=== PATIENT | male | born 1935 | race Caucasian/White ===

== ENCOUNTER 2016-12-18 18:36 | Inpatient (IN) | payer MEDICARE, OTHER ==
[~2016-12-18] VITALS: Ht 172.7 cm; Wt 75.8 kg
[~2016-12-18 18:36] MED LIST: ACET325T9 PO; ASPI-630 PO; ATOR40TA PO; BUPR100T6 PO; CARV25TA PO; DOCU50CA6 PO; LISI-338 PO; MULT1TAB6 PO; OMEG1CAP6 PO; PANT40TA3 PO; POTA10TA17 PO
[2016-12-18 18:50] VITALS: BP 106/61
[2016-12-18] MEDS ORDERED: IV NORMAL SALINE 1,000ML 1,000 ML IV SCH (19:45)
[2016-12-18] MEDS ORDERED: ZOLPIDEM 5 MG TABLET. PO PRN (19:45)
[2016-12-18 20:18] LABS: BASO % 1 % (0-3); EOS # 0.1 x10^3/uL (0.0-0.7); EOS % 4 % (0-3); HEMATOCRIT 22.6 % (39.0-53.0); HEMOGLOBIN 8.2 g/dL (13.0-17.5); LYMPH # 1.1 x10^3/uL (1.0-4.8); LYMPH % 28 % (24-48); MEAN CORPUSCULAR HEMOGLOBIN 37 pg (25-35); MEAN CORPUSCULAR HGB CONC 36 g/dL (31-37); MEAN CORPUSCULAR VOLUME 101 fL (79-100); MONO # 0.5 x10^3/uL (0.0-1.1); MONO % 12 % (0-9); NEUT # 2.2 x10^3uL (1.8-7.7); NEUT % 56 % (31-73); PLATELET COUNT 126 x10^3/uL (140-400); RED BLOOD COUNT 2.24 x10^6/uL (4.30-5.70); RED CELL DISTRIBUTION WIDTH 14.8 % (11.5-14.5); WHITE BLOOD COUNT 3.9 x10^3/uL (4.0-11.0)
[2016-12-18 20:31] LABS: ALBUMIN 3.2 g/dL (3.4-5.0); ALBUMIN/GLOBULIN RATIO 1.2 (1.0-1.7); CALCIUM 8.3 mg/dL (8.5-10.1); CREATININE 1.2 mg/dL (0.7-1.3); GFR 58.4; TOTAL BILIRUBIN 0.7 mg/dL (0.2-1.0); TOTAL PROTEIN 5.9 g/dL (6.4-8.2)
[2016-12-18 20:36] LABS: POTASSIUM 2.9 mmol/L (3.5-5.1)
[2016-12-18] MEDS ORDERED: POTASSIUM CITRATE 10 MEQ TABLET.ER PO SCH (21:00)
[2016-12-18] MEDS: ACETAMINOPHEN 500 MG TABLET PO SCH (21:00)
[2016-12-18] MEDS: ATORVASTATIN CALCIUM 20 MG TABLET PO SCH (21:00)
[2016-12-18] MEDS ORDERED: MAGNESIUM CHLORIDE ER 64 MG TABLET.ER PO SCH (21:00)
--- NOTE | 2016-12-18 21:17 | RAD ---
Abdominal radiograph December 18, 2016 INDICATION: Abdominal pain with diarrhea COMPARISON: CT abdomen/pelvis March 07, 2016, abdominal radiograph May 03, 2016 TECHNIQUE: 2 supine views of abdomen are provided. FINDINGS: Supine technique limits evaluation for free intraperitoneal air. There is subsegmental atelectasis at the left lung base. Partial profiling of median sternotomy changes. Coronary artery vascular stent is present. Surgical clips are identified in the right upper quadrant from prior cholecystectomy. There are no dilated loops of small and large bowel. Mild gaseous prominence of the transverse colon is present, nonspecific. No air-fluid levels are identified. Small calcifications are identified projecting over the left renal shadow measuring up to 6 mm. There is S-shaped scoliosis of the thoracolumbar spine. Left total hip arthroplasty is identified. IMPRESSION: 1. Nonobstructive bowel gas pattern. 2. 6 mm calcification projecting over the left renal shadow may represent a renal calculus. Electronically signed by: Kassy Caban MD (12/18/2016 9:13 PM) [facility]
[2016-12-18] MEDS: FAMOTIDINE 20 MG TABLET PO SCH (21:20)
[2016-12-18] MEDS: POTASSIUM CHLORIDE 30 MEQ in IV NORMAL SALINE 1,000ML 1,000 ML IV SCH (22:37)
[2016-12-18 22:40] VITALS: BP 91/57
[2016-12-19] VITALS (12 sets, daily range): BP systolic 87–114; BP diastolic 59–71
[2016-12-19 00:12] LABS: FECAL OB PT NEGATIVE (NEG)
[2016-12-19] MEDS ORDERED: PANT20TA58 PO (00:16)
[2016-12-19] MEDS ORDERED: CLOP75TA57 PO (00:16)
[2016-12-19] MEDS ORDERED: LOSA25TA PO (00:16)
[2016-12-19] MEDS ORDERED: CARV3.122 PO (00:16)
[2016-12-19 06:12] LABS: BASO % 1 % (0-3); EOS # 0.1 x10^3/uL (0.0-0.7); EOS % 4 % (0-3); HEMOGLOBIN 7.6 g/dL (13.0-17.5); LYMPH # 0.9 x10^3/uL (1.0-4.8); LYMPH % 35 % (24-48); MEAN CORPUSCULAR HEMOGLOBIN 37 pg (25-35); MEAN CORPUSCULAR HGB CONC 36 g/dL (31-37); MEAN CORPUSCULAR VOLUME 102 fL (79-100); MONO # 0.4 x10^3/uL (0.0-1.1); MONO % 14 % (0-9); NEUT # 1.3 x10^3uL (1.8-7.7); NEUT % 46 % (31-73); PLATELET COUNT 108 x10^3/uL (140-400); RED BLOOD COUNT 2.06 x10^6/uL (4.30-5.70); RED CELL DISTRIBUTION WIDTH 14.7 % (11.5-14.5); WHITE BLOOD COUNT 2.7 x10^3/uL (4.0-11.0)
[2016-12-19 06:23] LABS: ALBUMIN 2.9 g/dL (3.4-5.0); CALCIUM 8.2 mg/dL (8.5-10.1); CREATININE 1.1 mg/dL (0.7-1.3); GFR 64.6; MAGNESIUM 1.3 mg/dL (1.8-2.4); POTASSIUM 3.1 mmol/L (3.5-5.1); TOTAL BILIRUBIN 0.6 mg/dL (0.2-1.0); TOTAL PROTEIN 5.7 g/dL (6.4-8.2)
[2016-12-19 07:30] LABS: BACTERIA,URINE 0 /HPF (0-FEW); BILIRUBIN,URINE NEG (NEG); CLARITY,URINE CLEAR; COLOR,URINE AMBER; GLUCOSE,URINE NEG (NEG); NITRITE,URINE NEG (NEG); RBC,URINE 0 /HPF (0-2); SQUAMOUS EPITHELIAL CELL,UR FEW /LPF; UROBILINOGEN,URINE 0.2 mg/dL (0.2 mg/dL); WBC,URINE OCC /HPF (0-4)
[2016-12-19] MEDS: ASPIRIN 81 MG TAB.CHEW PO SCH (08:45)
[2016-12-19] MEDS: FAMOTIDINE 20 MG TABLET PO SCH ×2 (08:45→21:01)
[2016-12-19] MEDS ORDERED: IOHEXOL 300 MG/ML 75 ML VIAL. IV ONE ×2 (08:45→09:15)
[2016-12-19] MEDS: ACETAMINOPHEN 500 MG TABLET PO SCH ×3 (08:45→21:00)
[2016-12-19] MEDS: MAGNESIUM CHLORIDE ER 64 MG TABLET.ER PO SCH ×3 (08:46→21:00)
[2016-12-19] MEDS: POTASSIUM CITRATE 10 MEQ TABLET.ER PO SCH ×3 (08:47→21:01)
[2016-12-19] MEDS: buPROPion XL 150 MG TAB.ER.24H PO SCH (09:04)
--- NOTE | 2016-12-19 09:50 | RAD ---
Examination: CT angiography chest History: History of elevated d-dimer, open heart surgery Comparison: CT chest from 09/06/2009 Technique: Axial CT and radiographic images were performed with IV contrast. Coronal and sagittal 3-D MIP reformats are performed. PQRS Compliance Statement: One or more of the following individualized dose reduction techniques were utilized for this examination: 1. Automated exposure control 2. Adjustment of the mA and/or kV according to patient size 3. Use of iterative reconstruction technique Findings: The visualized thyroid gland grossly appears unremarkable. The central airways are patent. Diffuse coronary artery calcifications identified. Prior surgical changes of CABG. The heart size grossly appears unremarkable. No evidence of pleural effusion. Small hiatal hernia is identified. No radiologically significant mediastinal or bilateral axillary lymph nodes identified. There is no evidence of filling defect identified in the main pulmonary artery trunk and right and left main pulmonary arteries and the visualized lobar, segmental branches of the pulmonary arteries. 8 mm solid nodule identified in the right upper lobe of the lung grossly similar to prior exam from 2009. Minimal bibasal lung atelectasis. Minimal bibasal bronchiectatic changes. The visualized liver, adrenals grossly appears unremarkable. Moderate degenerative changes thoracic spine. Impression: 1. No evidence of pulmonary embolism. 2. Linear bibasal lung airspace opacities likely atelectasis or scarring changes. 3. 8 mm pulmonary nodule identified in the right upper lobe of the lungs, stable since 2009.
[2016-12-19] MEDS: POTASSIUM CHLORIDE 30 MEQ in IV NORMAL SALINE 1,000ML 1,000 ML IV SCH (11:02)
--- NOTE | 2016-12-19 11:11 | EKG ---
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
--- NOTE | 2016-12-19 15:55 | PDOC2 ---
CONSULT Date of Admission DATE: 12/19/16 TIME: 15:39 Reason for Consult: Elevated troponin Referring Physician: Dr. Scherer History of Present Illness This is a pleasant 81-year-old male who presented to his primary care doctor's office with hypotension and diarrhea. He has a past medical history of coronary artery disease, In 2002 he had his 1st stent placed at [facility]. A few years later he had to return for a 2nd stent in the same area and then in 2007 he underwent coronary artery bypass surgery. About a week and half ago he was in [place] visiting his grandchildren when he had sudden onset chest pain and diaphoresis. They called EMS and he was taken to [facility] and had an emergent angioplasty and stent. The said Dr. Gaston was the meal packer and his procedure lasted approximately 3 hours where they were finally able to get a stent into the blood clot but flow was not reestablished. They then told the family that he would need to have another bypass surgery but he might be prohibited by his age. After is a week spent in the hospital he was discharged home has been following with home health. At home his blood pressures have been quite low and he developed frequent diarrhea. He was feeling weak and tired so he went to see his primary. He was hospitalized and is getting checked for C diff. We have been called in consult because of an elevated troponin level. He is asymptomatic without any chest pain, pressure or tightness. His said he was slightly breathless at home but has been fine since he has been in the hospital. Past medical /surgical history: Myocardial infarction, coronary artery disease, coronary artery bypass grafting, coronary stent, hypertension, hyperlipidemia, kidney stones status post renal stent placement joint replacement allergies-no known drug allergies medications -list reviewed social history - he lives at home with his he denies any alcohol, tobacco or illegal drugs. Family history - no family history of premature coronary artery disease. Physical examination GENERAL: This is a well developed, well nourished male. No apparent distress. SKIN: Warm and dry with normal skin turgor. Negative for pallor. No lesions or rashes noted. EYES: Conjunctiva are clear. Extraocular movements are intact. No xanthelasma. HEAD AND NECK: Oral mucosa is moist. There is no cyanosis. Neck is supple. Jugular venous pressure is flat. Carotid pulses are 2/2 bilaterally. No carotid bruits. There is no obvious thyromegaly. HEART: Regular rate and rhythm. Normal S1 and S2. No S3. No S4. No significant murmur. No rub. PMI is not displaced. LUNGS: Effort is good. There is symmetric expansion bilaterally. Clear to auscultation bilaterally. No wheezes. No crackles. No rhonchi. ABDOMEN: Normal active bowel sounds. Soft. Nontender. EXTREMITIES: No clubbing. No cyanosis. No edema of lower extremities. Palpable pedal pulses. MUSCULOSKELETAL: No kyphosis. No scoliosis. No localized tenderness or stiffness. Gait appears normal. NEUROLOGIC: Alert and oriented times three. Cranial nerves III-XII are grossly intact. Good motor tone and strength in the upper and lower extremities bilaterally. PSYCHOLOGIC: This is a pleasant patient with a normal affect CT scan of chest 1. No evidence of pulmonary embolism. 2. Linear bibasal lung airspace opacities likely atelectasis or scarring changes. 3. 8 mm pulmonary nodule identified in the right upper lobe of the lungs, stable since 2009. Impression and plan 1. Elevated troponin -likely related to his recent myocardial infarction. We will plan to repeat his troponin in 6-8 hours and see if they are trending down or remaining flat. At this point he is asymptomatic without any chest pain or problems continue medical therapy. 2. . Electrolyte imbalance -supplement potassium and magnesium and recheck 3. hypotension -improved with fluid replacement and holding medication. Continue same for now at some point we will go back and resume his Reynaldo and beta- madison. 4. coronary artery disease status post revascularization. Continue aspirin and statin therapy. Request records from [facility]. 5. Ischemic cardiomyopathy/ Systolic dysfunction - patient reports his ejection fraction was at 45 percent at [facility] 6. hyperlipidemia continue atorvastatin. 7. anemia -continue aspirin with recent [place]. And request records from [facility] Thank you Dr. Scherer for referring this pleasant patient to her service would be happy to follow along with you Current Medications Current Medications Sodium Chloride 1,000 ml @ 75 mls/hr [id number] IV ; Start 12/18/16 at 19:45; Stop 12/18/16 at 20:41; Status DC Acetaminophen (Tylenol) 1,000 mg BID PO ; Start 12/18/16 at 21:00 Aspirin (Children'S Aspirin) 81 mg DAILY PO Last administered on 12/19/16 08: 45; Start 12/19/16 at 09:00 Bupropion HCl (Wellbutrin Xl) 150 mg DAILY PO Last administered on 12/19/16 09 :04; Start 12/19/16 at 09:00 Potassium Citrate (Urocit-K) 10 meq BID PO Last administered on 12/18/16 21:20 ; Start 12/18/16 at 21:00; Stop 12/19/16 at 08:40; Status DC Atorvastatin Calcium (Lipitor) 40 mg QHS PO ; Start 12/18/16 at 21:00 Famotidine (Pepcid) 20 mg BID PO Last administered on 12/19/16 08:45; Start at 21:00 Zolpidem Tartrate (Ambien) 5 mg PRN QHS PRN PO INSOMNIA, MAY REPEAT IN 1HR; Start 12/18/16 at 19:45 Magnesium Chloride (Mag Delay) 64 mg BID PO Last administered on 12/18/16 21: 19; Start 12/18/16 at 21:00; Stop 12/19/16 at 08:40; Status DC Potassium Chloride 30 meq/ Sodium Chloride 1,015 ml @ 75 mls/hr [id number] IV Last administered on 12/18/16 22:37; Start 12/18/16 at 21:30 Magnesium Chloride (Mag Delay) 64 mg TID PO Last administered on 12/19/16 08: 46; Start 12/19/16 at 09:00 Potassium Citrate (Urocit-K) 20 meq TID PO Last administered on 12/19/16 08:47 ; Start 12/19/16 at 09:00 Iohexol (Omnipaque 300 Mg/ml) 75 ml 1X ONCE IV Last administered on 12/19/16 09:22; Start 12/19/16 at 08:45; Stop 12/19/16 at 09:03; Status DC Iohexol (Omnipaque 300 Mg/ml) 75 ml 1X ONCE IV ; Start 12/19/16 at 09:15; Stop 12/19/16 at 09:16; Status DC Active Scripts Active Reported Protonix (Pantoprazole Sodium) 20 Mg Tablet.dr 1 Tab PO DAILY Plavix (Clopidogrel Bisulfate) 75 Mg Tablet 1 Tab PO DAILY Cozaar (Losartan Potassium) 25 Mg Tablet 12.5 Mg PO DAILY Carvedilol 3.125 Mg Tablet 1 Tab PO BID Colace (Docusate Sodium) 50 Mg Capsule 50 Mg PO DAILY Tylenol (Acetaminophen) 325 Mg Tablet 1,000 Mg PO BID Fish Oil 1,000 Mg Capsule ([place]-3 Fatty Acids/Fish Oil) 1 Each Capsule 1 Each PO BID Potassium Citrate 10 Meq Tablet.er 10 Meq PO BID Lipitor (Atorvastatin Calcium) 40 Mg Tablet 40 Mg PO HS Wellbutrin (Bupropion Hcl) 100 Mg Tablet 150 Mg PO DAILY Centrum Complete Multivit Tab (Multivitamin/Iron/Folic Acid) 1 Each Tablet 1 Each PO DAILY Aspirin 81 Mg Tab.chew 81 Mg PO DAILY Allergies: Coded Allergies: No Known Drug Allergies (Unverified , 03/07/16) VITALS Vital Signs Date Time Temp Pulse Resp B/P (MAP) Pulse Ox O2 Delivery O2 Flow Rate FiO2 12/19/16 14:48 68 13 98/64 (75) Room Air 12/19/16 13:57 97 12/19/16 11:36 96.8 Labs Laboratory Tests Test 12/18/16 19:50 12/18/16 23:30 12/19/16 06:00 12/19/16 12:05 White Blood Count 3.9 x10^3/uL (4.0-11.0) 2.7 x10^3/uL (4.0-11.0) Red Blood Count 2.24 x10^6/uL (4.30-5.70) 2.06 x10^6/uL (4.30-5.70) Hemoglobin 8.2 g/dL (13.0-17.5) 7.6 g/dL (13.0-17.5) Hematocrit 22.6 % (39.0-53.0) 21.0 % (39.0-53.0) Mean Corpuscular Volume 101 fL (79-100) 102 fL (79-100) Mean Corpuscular Hemoglobin 37 pg (25-35) 37 pg (25-35) Mean Corpuscular Hemoglobin Concent 36 g/dL (31-37) 36 g/dL (31-37) Red Cell Distribution Width 14.8 % (11.5-14.5) 14.7 % (11.5-14.5) Platelet Count 126 x10^3/uL (140-400) 108 x10^3/uL (140-400) Neutrophils (%) (Auto) 56 % (31-73) 46 % (31-73) Lymphocytes (%) (Auto) 28 % (24-48) 35 % (24-48) Monocytes (%) (Auto) 12 % (0-9) 14 % (0-9) Eosinophils (%) (Auto) 4 % (0-3) 4 % (0-3) Basophils (%) (Auto) 1 % (0-3) 1 % (0-3) Neutrophils # (Auto) 2.2 x10^3uL (1.8-7.7) 1.3 x10^3uL (1.8-7.7) Lymphocytes # (Auto) 1.1 x10^3/uL (1.0-4.8) 0.9 x10^3/uL (1.0-4.8) Monocytes # (Auto) 0.5 x10^3/uL (0.0-1.1) 0.4 x10^3/uL (0.0-1.1) Eosinophils # (Auto) 0.1 x10^3/uL (0.0-0.7) 0.1 x10^3/uL (0.0-0.7) Basophils # (Auto) 0.0 x10^3/uL (0.0-0.2) 0.0 x10^3/uL (0.0-0.2) D-Dimer (Kathi) 0.71 mg/L (0.00-0.50) Sodium Level 142 mmol/L (136-145) 142 mmol/L (136-145) Potassium Level 2.9 mmol/L (3.5-5.1) 3.1 mmol/L (3.5-5.1) Chloride Level 106 mmol/L (98-107) 108 mmol/L (98-107) Carbon Dioxide Level 29 mmol/L (21-32) 28 mmol/L (21-32) Anion Gap 7 (6-14) 6 (6-14) Blood Urea Nitrogen 20 mg/dL (8-26) 17 mg/dL (8-26) Creatinine 1.2 mg/dL (0.7-1.3) 1.1 mg/dL (0.7-1.3) Estimated GFR (Cockcroft-Gault) 58.4 64.6 BUN/Creatinine Ratio 17 (6-20) 15 (6-20) Glucose Level 132 mg/dL (70-99) 88 mg/dL (70-99) Lactic Acid Level 1.1 mmol/L (0.4-2.0) Calcium Level 8.3 mg/dL (8.5-10.1) 8.2 mg/dL (8.5-10.1) Magnesium Level 1.5 mg/dL (1.8-2.4) 1.3 mg/dL (1.8-2.4) Total Bilirubin 0.7 mg/dL (0.2-1.0) 0.6 mg/dL (0.2-1.0) Aspartate Amino Transf (AST/SGOT) 26 U/L (15-37) 25 U/L (15-37) Alanine Aminotransferase (ALT/SGPT) 32 U/L (16-63) 29 U/L (16-63) Alkaline Phosphatase 73 U/L (46-116) 63 U/L (46-116) Total Protein 5.9 g/dL (6.4-8.2) 5.7 g/dL (6.4-8.2) Albumin 3.2 g/dL (3.4-5.0) 2.9 g/dL (3.4-5.0) Albumin/Globulin Ratio 1.2 (1.0-1.7) 1.0 (1.0-1.7) Stool Occult Blood Negative (NEG) Urine Collection Type Unknown Urine Color Kathy Urine Clarity Clear Urine pH 5.5 Urine Specific [place] 1.020 Urine Protein Trace (NEG-TRACE) Urine Glucose (UA) Neg mg/dL (NEG) Urine Ketones (Stick) Trace mg/dL (NEG) Urine Blood Neg (NEG) Urine Nitrite Neg (NEG) Urine Bilirubin Neg (NEG) Urine Urobilinogen Dipstick 0.2 mg/dL (0.2 mg/dL) Urine Leukocyte Esterase Neg (NEG) Urine RBC 0 /HPF (0-2) Urine WBC Occ /HPF (0-4) Urine Squamous Epithelial Cells Few /LPF Urine Transitional Epithelial Cells Occ /LPF Urine Bacteria 0 /HPF (0-FEW) Urine Mucus Slight /LPF Creatine Kinase 34 U/L (39-308) Troponin I Quantitative 0.927 ng/mL (0-0.055) 0.767 ng/mL (0-0.055) DC-Val-B-Type Natriuretic Peptide 947 pg/mL (0-449) Vitamin B12 Level 851 pg/mL (247-911) NALDO RIVERA APRN Dec 19, 2016 15:55
[2016-12-19] MEDS: ATORVASTATIN CALCIUM 20 MG TABLET PO SCH (21:01)
[2016-12-20] VITALS (26 sets, daily range): BP systolic 82–129; BP diastolic 48–79
[2016-12-20] MEDS: POTASSIUM CHLORIDE 30 MEQ in IV NORMAL SALINE 1,000ML 1,000 ML IV SCH ×2 (03:30→12:37)
[2016-12-20 06:03] LABS: BASO % 1 % (0-3); EOS # 0.1 x10^3/uL (0.0-0.7); EOS % 5 % (0-3); HEMATOCRIT 20.5 % (39.0-53.0); HEMOGLOBIN 7.4 g/dL (13.0-17.5); LYMPH % 44 % (24-48); MEAN CORPUSCULAR HEMOGLOBIN 37 pg (25-35); MEAN CORPUSCULAR HGB CONC 36 g/dL (31-37); MEAN CORPUSCULAR VOLUME 103 fL (79-100); MONO # 0.3 x10^3/uL (0.0-1.1); MONO % 12 % (0-9); NEUT # 0.9 x10^3uL (1.8-7.7); NEUT % 38 % (31-73); PLATELET COUNT 104 x10^3/uL (140-400); RED BLOOD COUNT 1.99 x10^6/uL (4.30-5.70); RED CELL DISTRIBUTION WIDTH 15.1 % (11.5-14.5); WHITE BLOOD COUNT 2.3 x10^3/uL (4.0-11.0)
[2016-12-20 06:10] LABS: CALCIUM 7.8 mg/dL (8.5-10.1); GFR 72.1; POTASSIUM 3.9 mmol/L (3.5-5.1)
[2016-12-20 06:41] LABS: % BANDS 2 % (0-9); % EOS 2 % (0-5); % LYMPHS 56 % (24-48); % MONOS 8 % (0-10); % SEGS 32 % (35-66)
[2016-12-20 06:47] LABS: OVALOCYTES OCC; PLT ESTIMATE DECREASED (ADEQUATE); SPHEROCYTES FEW
[2016-12-20] MEDS: ASPIRIN 81 MG TAB.CHEW PO SCH (08:15)
[2016-12-20] MEDS: MAGNESIUM CHLORIDE ER 64 MG TABLET.ER PO SCH ×3 (08:16→20:55)
[2016-12-20] MEDS: ACETAMINOPHEN 500 MG TABLET PO SCH ×2 (08:17→20:55)
[2016-12-20] MEDS: FAMOTIDINE 20 MG TABLET PO SCH ×2 (08:17→20:55)
[2016-12-20] MEDS: POTASSIUM CITRATE 10 MEQ TABLET.ER PO SCH ×3 (08:18→20:56)
[2016-12-20] MEDS: buPROPion XL 150 MG TAB.ER.24H PO SCH (08:19)
--- NOTE | 2016-12-20 09:21 | PDOC ---
SUBJECTIVE Subjective: He denies any chest pain. He has ambulated down the hallway with the help of OT/ PT. His last diarrhea was from 3:30 this morning. He denies any postural dizziness Exam Constitutional: Denies fever or chills Eyes: Denies change in visual acuity HENT: Denies nasal congestion or sore throat Respiratory: Denies cough or shortness of breath Cardiovascular: Denies chest pain or edema GI: Denies abdominal pain, nausea, vomiting, bloody stools and has diarrhea : Denies dysuria Musculoskeletal: Denies back pain or joint pain Integument: Denies rash Neurologic: Denies headache, focal weakness or sensory changes Endocrine: Denies polyuria or polydipsia Lymphatic: Denies swollen glands Psychiatric: Denies depression or anxiety OBJECTIVE Vital Signs Vital Signs Date Time Temp Pulse Resp B/P (MAP) Pulse Ox O2 Delivery O2 Flow Rate FiO2 12/20/16 08:30 Room Air 12/20/16 07:48 74 17 117/73 (88) 12/20/16 04:48 96 12/19/16 18:56 97.5 Physical Exam Constitutional: Well developed, well nourished, no acute distress, non-toxic appearance. HENT: Normocephalic, atraumatic, bilateral external ears normal, oropharynx moist, no oral exudates, nose normal. Eyes: MARILYNN, EOMI, conjunctiva normal, no discharge. Neck: Normal range of motion, no tenderness, supple, no stridor. Cardiovascular: JVP not elevated. No carotid bruit. Nor precordial pulsations or heaves. S1 N,S2N. No murmurs. No rubs or clicks. Thorax and Lungs: NOrmal respiration. Normal chest expansion. Normal to percuss. Equal breath sounds. No crackles. No wheeze. Abdomen: Bowel sounds normal, soft, no tenderness, no masses, no pulsatile masses. Skin: Warm, dry, no erythema, no rash. Back: No tenderness, no CVA tenderness. Extremities: Intact distal pulses, no tenderness, no cyanosis, no clubbing, ROM intact, no edema. Neurologic: Alert and oriented X 3, normal motor function, normal sensory function, no focal deficits noted. Psychologic: Affect normal, judgement normal, mood normal. Lab Laboratory Tests Test 12/19/16 12:05 12/19/16 18:00 12/20/16 05:37 Troponin I Quantitative 0.767 ng/mL (0-0.055) H 0.751 ng/mL (0-0.055) H Erythrocyte Sedimentation Rate 40 (0-15) H White Blood Count 2.3 x10^3/uL (4.0-11.0) L Red Blood Count 1.99 x10^6/uL (4.30-5.70) L Hemoglobin 7.4 g/dL (13.0-17.5) L Hematocrit 20.5 % (39.0-53.0) L Mean Corpuscular Volume 103 fL (79-100) H Mean Corpuscular Hemoglobin 37 pg (25-35) H Mean Corpuscular Hemoglobin Concent 36 g/dL (31-37) Red Cell Distribution Width 15.1 % (11.5-14.5) H Platelet Count 104 x10^3/uL (140-400) L Neutrophils (%) (Auto) 38 % (31-73) Lymphocytes (%) (Auto) 44 % (24-48) Monocytes (%) (Auto) 12 % (0-9) H Eosinophils (%) (Auto) 5 % (0-3) H Basophils (%) (Auto) 1 % (0-3) Neutrophils # (Auto) 0.9 x10^3uL (1.8-7.7) L Lymphocytes # (Auto) 1.0 x10^3/uL (1.0-4.8) Monocytes # (Auto) 0.3 x10^3/uL (0.0-1.1) Eosinophils # (Auto) 0.1 x10^3/uL (0.0-0.7) Basophils # (Auto) 0.0 x10^3/uL (0.0-0.2) Segmented Neutrophils % 32 % (35-66) L Band Neutrophils % 2 % (0-9) Lymphocytes % 56 % (24-48) H Monocytes % 8 % (0-10) Eosinophils % 2 % (0-5) Platelet Estimate Decreased (ADEQUATE) Spherocytes Few Ovalocytes Occ Sodium Level 143 mmol/L (136-145) Potassium Level 3.9 mmol/L (3.5-5.1) Chloride Level 110 mmol/L (98-107) H Carbon Dioxide Level 27 mmol/L (21-32) Anion Gap 6 (6-14) Blood Urea Nitrogen 14 mg/dL (8-26) Creatinine 1.0 mg/dL (0.7-1.3) Estimated GFR (Cockcroft-Gault) 72.1 Glucose Level 96 mg/dL (70-99) Calcium Level 7.8 mg/dL (8.5-10.1) L Magnesium Level 1.4 mg/dL (1.8-2.4) L MEDICATIONS Medications Current Medications Medications (Trade) Dose Ordered Sig/Andrew Start Time Stop Time Status Last Admin Dose Admin Acetaminophen (Tylenol) 1,000 mg BID 12/18/16 21:00 12/20/16 08:17 1,000 MG Aspirin (Children'S Aspirin) 81 mg DAILY 12/19/16 09:00 12/20/16 08:15 81 MG Atorvastatin Calcium (Lipitor) 40 mg QHS 12/18/16 21:00 12/19/16 21:01 40 MG Bupropion HCl (Wellbutrin Xl) 150 mg DAILY 12/19/16 09:00 12/20/16 08:19 150 MG Famotidine (Pepcid) 20 mg BID 12/18/16 21:00 12/20/16 08:17 20 MG Iohexol (Omnipaque 300 Mg/ml) 75 ml 1X ONCE 12/19/16 09:15 12/19/16 09:16 DC Magnesium Chloride (Mag Delay) 64 mg TID 12/19/16 09:00 12/20/16 08:16 64 MG Potassium Chloride 30 meq/ Sodium Chloride 1,015 ml @ 75 mls/hr [id number] 12/18/16 21:30 12/20/16 03:30 75 MLS/HR Potassium Citrate (Urocit-K) 20 meq TID 12/19/16 09:00 12/20/16 08:18 20 MEQ Sodium Chloride 1,000 ml @ 75 mls/hr [id number] 12/18/16 19:45 12/18/16 20:41 DC Zolpidem Tartrate (Ambien) 5 mg PRN QHS PRN 12/18/16 19:45 PLAN Plan Recent inferior myocardial infarction: The patient's EKG on 12/08/16 showed hyperacute changes inferiorly with reciprocal changes anteriorly. His peak troponin I was 38. His elevated troponin of 0.9 on this admission likely reflects the trending down off the troponin in the office long half-life. He denies any angina. Coronary disease/CABG: He has an extensive history of coronary disease with a prior stent associated with a myocardial infarction in 1997 and another stent subsequently. He underwent CABG with CARSON to the LAD, vein graft to the RCA and vein graft to the obtuse marginal in 2007. His recent cardiac catheterization was somewhat suboptimal. The left coronary artery was nonselectively cannulated. The right coronary artery was totally occluded. The CARSON to the LAD could not be cannulated in view of the tortuosity of the left subclavian. The vein graft to the obtuse marginal was patent. The vein graft to the right coronary artery was totally occluded. This was then revascularized but despite 3.5 mm drug-eluting stent is no reflow. He had a post myocardial infarction Marcia stress myocardial perfusion scan which showed a predominantly fixed moderately large severe based inferior defect with an ejection fraction of 37%. He denies any angina. Ischemic cardiomyopathy: This is probably new. Ejection fraction is around 35-40 %. Unfortunately his blood pressure is too low for medications. As his blood pressure improves we will slowly reintroduce his cardiac medications including carvedilol. History of hypertension: He is previously on carvedilol 25 g by mouth twice a day and is currently relatively hypotensive. Hypokalemia: Severe with a calcium of 2.9 related to diarrhea. Hypercholesterolemia: His parents done at [facility] showed LDL below 50 and he was on Lipitor/simvastatin at 40 mg. Macrocytic anemia: He is always been told to be anemic. His hemoglobin was 10 on admission to [facility] and has not trended down. Physical vitamin B12 and folate and TSH are normal, he may need a bone marrow biopsy I have discussed the case with his . He normally follows at [facility] USMAN MORALES MD Dec 20, 2016 09:21
[2016-12-20] MEDS ORDERED: methylPREDNISolone SOD SUCC PF 40 MG/ML VIAL. IV ONE (12:30)
[2016-12-20] MEDS: FERROUS SULFATE 325 MG TABLET. PO SCH (12:37)
[2016-12-20] MEDS: LACTOBACILLUS ACIDOPH & BULGAR 1 TABLET. PO SCH (12:37)
[2016-12-20 14:02] LABS: RETIC COUNT 1.3 % (0.5-2.5)
--- NOTE | 2016-12-20 14:04 | RAD ---
EXAM: Abdomen CT without contrast. HISTORY: Diarrhea. TECHNIQUE: Computed tomographic images of the abdomen were obtained without intravenous contrast. Multiplanar reformatting was performed. COMPARISON: 03/07/2016. FINDINGS: Evaluation of the lower thorax demonstrates findings with coronary artery bypass grafting. There is calcification of the aortic valve. There is mild cardiomegaly. There is a small hiatal hernia. There is left greater than right basilar atelectasis or pleural-parenchymal scarring. There is a trace right pleural effusion. There are a few small hypodense lesions within the liver, the largest of which measures 1 cm within the left hepatic lobe and demonstrates attenuation favoring a cyst. The gallbladder is surgically absent. The pancreas is unremarkable. There is splenomegaly, measuring 16.7 cm in transaxial dimension. The stomach is mildly distended. The adrenal glands are unremarkable. There is mild right renal atrophy. There are left greater than right renal stones, the largest of which measures 7 mm on the left. There is no evidence of obstructive uropathy. There are several small hypodense lesions within both kidneys, the vocal to characterize in the absence of contrast. The largest of these measures 3.3 cm within the lower pole the left kidney and is consistent with a cyst. The smaller lesions are too small to characterize. There is a 5 mm focus of hyperdensity along the anterior lower mid zone of the left kidney, possibly a hemorrhagic cyst. No abnormally thickened or dilated loop of bowel is seen on the [id number]. There are colonic diverticula. There is aortic and aortic branch vessel atherosclerosis with calcified plaque. No aneurysm is seen. There is suggestion of change throughout the visualized thoracolumbar spine. No suspicious osseous lesion is seen. IMPRESSION: 1. Colonic diverticulosis. There is no evidence of diverticulitis within the [id number]. 2. Multiple hypodense lesions within both kidneys, some of which are too small to characterize in the largest of which is consistent with a cyst. The additional lesions are also likely cysts based on the prior study. 3. Left greater than right nephrolithiasis. There is no evidence of obstructive uropathy. 4. Small hypodense lesions within the liver, stable in appearance. In the absence of known malignancy, these are likely cysts. 5. Splenomegaly, stable in appearance. 6. Small hiatal hernia. PQRS Compliance Statement: One or more of the following individualized dose reduction techniques were utilized for this examination: 1. Automated exposure control 2. Adjustment of the mA and/or kV according to patient size 3. Use of iterative reconstruction technique
[2016-12-20] MEDS ORDERED: IV NORMAL SALINE 250ML 250 ML ONE (15:28)
[2016-12-20] MEDS ORDERED: FUROSEMIDE 20 MG/2 ML VIAL IVP ONE (18:00)
[2016-12-20 18:58] LABS: BASO % 0 % (0-3); EOS % 1 % (0-3); HEMATOCRIT 27.7 % (39.0-53.0); HEMOGLOBIN 9.7 g/dL (13.0-17.5); LYMPH # 0.3 x10^3/uL (1.0-4.8); LYMPH % 16 % (24-48); MEAN CORPUSCULAR HEMOGLOBIN 36 pg (25-35); MEAN CORPUSCULAR HGB CONC 35 g/dL (31-37); MEAN CORPUSCULAR VOLUME 101 fL (79-100); MONO % 2 % (0-9); NEUT # 1.7 x10^3uL (1.8-7.7); NEUT % 81 % (31-73); PLATELET COUNT 126 x10^3/uL (140-400); RED BLOOD COUNT 2.73 x10^6/uL (4.30-5.70); RED CELL DISTRIBUTION WIDTH 16.6 % (11.5-14.5); WHITE BLOOD COUNT 2.1 x10^3/uL (4.0-11.0)
[2016-12-20] MEDS: ATORVASTATIN CALCIUM 20 MG TABLET PO SCH (20:55)
[2016-12-21] VITALS (10 sets, daily range): BP systolic 95–141; BP diastolic 56–76
--- NOTE | 2016-12-21 03:10 | PN ---
DATE: 12/20/2016 SUBJECTIVE: A 81-year-old male in with elevated troponin levels, chest pain as well as chronic diarrhea. The patient's diarrhea is slowing down; however, the patient's blood pressure is still dropping down to about 86/56, respiratory rate 18, pulse 79, afebrile. The patient otherwise is feeling a little better, but still very weak. Hemoglobin has dropped again down into the 7.4, hematocrit 20, where as RBC is less than 1.9. White count was also depreciating from approximately 4 down to 2.3. Increase percent lymphocytes to 56. Sed rate elevated to 40. The patient's potassium has slightly come up from under 2.9 to 3.9. Magnesium is still low at 1.4, but coming up gradually. The patient's troponin is gradually decreasing over time. The patient otherwise is alert and oriented. Speech fluent, spontaneous, appropriate. OBJECTIVE: LUNGS: Diminished throughout, but clear. CARDIOVASCULAR: Regular sinus rhythm. ABDOMEN: Soft, diffuse tenderness. No rebounding, no guarding, but there is definite pain noted. EXTREMITIES: No clubbing, cyanosis, or edema. However, the patient's pulse in the left foot are markedly diminished compared to that of the right, ____ and decreased capillary refill in the left foot compared to that of the right foot. IMPRESSION: Elevated troponin, decreasing, probably from the infarction that he has had post STEMI, hypokalemia, anemia, thrombocytopenia, vascular disease, elevated sed rate, diarrhea, seems to be slowing down. So far, cultures have been negative on the stools. The patient as an outpatient probably will end up needing carotid Dopplers, arterial leg Dopplers, bone marrow. He is going to receive 1 unit packed RBC's today and peripheral blood smear. We will go ahead and continue to monitor him carefully here. Discussed with him and the situation seen by Cardiology and they are going to medically manage the situation. In the meantime, we need to get this blood pressure up and make further evaluation on him as these are the results. Also we started on iron for his iron deficiency anemia as well. ZAIRA WORKMAN MD DR: CECILIO/tara JOB#: [id number] / [id number]
[2016-12-21 06:35] LABS: CALCIUM 8.5 mg/dL (8.5-10.1); CREATININE 0.9 mg/dL (0.7-1.3); GFR 81.4; MAGNESIUM 1.4 mg/dL (1.8-2.4); POTASSIUM 4.2 mmol/L (3.5-5.1)
[2016-12-21 07:12] LABS: BASO % 0 % (0-3); EOS % 1 % (0-3); HEMATOCRIT 29.5 % (39.0-53.0); HEMOGLOBIN 10.6 g/dL (13.0-17.5); LYMPH # 1.6 x10^3/uL (1.0-4.8); LYMPH % 28 % (24-48); MEAN CORPUSCULAR HEMOGLOBIN 36 pg (25-35); MEAN CORPUSCULAR HGB CONC 36 g/dL (31-37); MEAN CORPUSCULAR VOLUME 100 fL (79-100); MONO # 0.4 x10^3/uL (0.0-1.1); MONO % 8 % (0-9); NEUT # 3.7 x10^3uL (1.8-7.7); NEUT % 64 % (31-73); PLATELET COUNT 141 x10^3/uL (140-400); RED BLOOD COUNT 2.94 x10^6/uL (4.30-5.70); RED CELL DISTRIBUTION WIDTH 16.4 % (11.5-14.5); WHITE BLOOD COUNT 5.8 x10^3/uL (4.0-11.0)
[2016-12-21] MEDS ORDERED: FERROUS SULFATE 325 MG TABLET. PO SCH (08:00)
[2016-12-21] MEDS: ACETAMINOPHEN 500 MG TABLET PO SCH (08:45)
[2016-12-21] MEDS: POTASSIUM CITRATE 10 MEQ TABLET.ER PO SCH (08:45)
[2016-12-21] MEDS: ASPIRIN 81 MG TAB.CHEW PO SCH (08:45)
[2016-12-21] MEDS: FERROUS SULFATE 325 MG TABLET. PO SCH (08:45)
[2016-12-21] MEDS: MAGNESIUM CHLORIDE ER 64 MG TABLET.ER PO SCH (08:46)
[2016-12-21] MEDS: LACTOBACILLUS ACIDOPH & BULGAR 1 TABLET. PO SCH (08:46)
[2016-12-21] MEDS: FAMOTIDINE 20 MG TABLET PO SCH (08:46)
[2016-12-21] MEDS ORDERED: buPROPion 75 MG TABLET PO SCH (09:00)
--- NOTE | 2016-12-21 10:13 | PDOC ---
NALDO RIVERA [employer] 12/21/16 1012: PROGRESS NOTES Assessment We are seeing the patient for elevated troponin 1. Elevated troponin -trending down related to recent inferior wall [place]. 2. . Electrolyte imbalance -potassium is now normal will plan to give IV magnesium to get his level up. 3. hypotension -improved with fluid replacement and holding medication. Continue same for now at some point we will go back and resume his Reynaldo and beta- [place]. 4. coronary artery disease status post revascularization. Continue aspirin and statin therapy. 5. Ischemic cardiomyopathy/ Systolic dysfunction - patient reports his ejection fraction was at 45 percent at [facility] 6. hyperlipidemia continue atorvastatin. 7. anemia -continue aspirin with recent [place]. And request records from [facility] Problems: Subjective He is up walking in the [place] with physical therapy and doing well. His diarrhea has improved but he still has loose stool. His legs continue to feel slightly weak. Objective Vital Signs Date Time Temp Pulse Resp B/P (MAP) Pulse Ox O2 Delivery O2 Flow Rate FiO2 12/21/16 08:57 80 22 107/69 (82) 97 Room Air 12/21/16 05:30 98.5 Intake and Output 12/22/16 07:00 Intake Total 240 ml Balance 240 ml Intake Oral 240 ml # Voids 2 # Bowel Movements 2 Abdomen: Normal bowel sounds, Soft, No tenderness Heart: Regular rate, Normal S1, Normal S2 Extremities: No edema, Normal pulses General: Alert, Oriented X3, Cooperative HEENT: EOMI, Mucous membr. moist/pink Lungs: Clear to auscultation, Normal air movement Psych/Mental Status: Mental status NL, Mood NL Review of Relevant I have reviewed the following items lina (where applicable) has been applied. Labs Laboratory Tests Test 12/19/16 12:05 12/19/16 18:00 12/20/16 05:00 12/20/16 05:37 Troponin I Quantitative 0.767 ng/mL (0-0.055) 0.751 ng/mL (0-0.055) Erythrocyte Sedimentation Rate 40 (0-15) Iron Level 58 ug/dL (65-175) Total Iron Binding Capacity 183 ug/dL (250-450) Iron Saturation 32 % (15-34) Nasal Screen MRSA (PCR) Negative (Negative) White Blood Count 2.3 x10^3/uL (4.0-11.0) Red Blood Count 1.99 x10^6/uL (4.30-5.70) Hemoglobin 7.4 g/dL (13.0-17.5) Hematocrit 20.5 % (39.0-53.0) Mean Corpuscular Volume 103 fL (79-100) Mean Corpuscular Hemoglobin 37 pg (25-35) Mean Corpuscular Hemoglobin Concent 36 g/dL (31-37) Red Cell Distribution Width 15.1 % (11.5-14.5) Platelet Count 104 x10^3/uL (140-400) Neutrophils (%) (Auto) 38 % (31-73) Lymphocytes (%) (Auto) 44 % (24-48) Monocytes (%) (Auto) 12 % (0-9) Eosinophils (%) (Auto) 5 % (0-3) Basophils (%) (Auto) 1 % (0-3) Neutrophils # (Auto) 0.9 x10^3uL (1.8-7.7) Lymphocytes # (Auto) 1.0 x10^3/uL (1.0-4.8) Monocytes # (Auto) 0.3 x10^3/uL (0.0-1.1) Eosinophils # (Auto) 0.1 x10^3/uL (0.0-0.7) Basophils # (Auto) 0.0 x10^3/uL (0.0-0.2) Segmented Neutrophils % 32 % (35-66) Band Neutrophils % 2 % (0-9) Lymphocytes % 56 % (24-48) Monocytes % 8 % (0-10) Eosinophils % 2 % (0-5) Platelet Estimate Decreased (ADEQUATE) Spherocytes Few Ovalocytes Occ Sodium Level 143 mmol/L (136-145) Potassium Level 3.9 mmol/L (3.5-5.1) Chloride Level 110 mmol/L (98-107) Carbon Dioxide Level 27 mmol/L (21-32) Anion Gap 6 (6-14) Blood Urea Nitrogen 14 mg/dL (8-26) Creatinine 1.0 mg/dL (0.7-1.3) Estimated GFR (Cockcroft-Gault) 72.1 Glucose Level 96 mg/dL (70-99) Calcium Level 7.8 mg/dL (8.5-10.1) Magnesium Level 1.4 mg/dL (1.8-2.4) Test 12/20/16 11:30 12/20/16 18:45 12/21/16 05:37 12/21/16 06:39 Reticulocyte Count (auto) 1.3 % (0.5-2.5) Ferritin 148 ng/mL (26-388) Thyroid Stimulating Hormone (TSH) 1.735 uIU/mL (0.358-3.740) White Blood Count 2.1 x10^3/uL (4.0-11.0) 5.8 x10^3/uL (4.0-11.0) Red Blood Count 2.73 x10^6/uL (4.30-5.70) 2.94 x10^6/uL (4.30-5.70) Hemoglobin 9.7 g/dL (13.0-17.5) 10.6 g/dL (13.0-17.5) Hematocrit 27.7 % (39.0-53.0) 29.5 % (39.0-53.0) Mean Corpuscular Volume 101 fL (79-100) 100 fL (79-100) Mean Corpuscular Hemoglobin 36 pg (25-35) 36 pg (25-35) Mean Corpuscular Hemoglobin Concent 35 g/dL (31-37) 36 g/dL (31-37) Red Cell Distribution Width 16.6 % (11.5-14.5) 16.4 % (11.5-14.5) Platelet Count 126 x10^3/uL (140-400) 141 x10^3/uL (140-400) Neutrophils (%) (Auto) 81 % (31-73) 64 % (31-73) Lymphocytes (%) (Auto) 16 % (24-48) 28 % (24-48) Monocytes (%) (Auto) 2 % (0-9) 8 % (0-9) Eosinophils (%) (Auto) 1 % (0-3) 1 % (0-3) Basophils (%) (Auto) 0 % (0-3) 0 % (0-3) Neutrophils # (Auto) 1.7 x10^3uL (1.8-7.7) 3.7 x10^3uL (1.8-7.7) Lymphocytes # (Auto) 0.3 x10^3/uL (1.0-4.8) 1.6 x10^3/uL (1.0-4.8) Monocytes # (Auto) 0.0 x10^3/uL (0.0-1.1) 0.4 x10^3/uL (0.0-1.1) Eosinophils # (Auto) 0.0 x10^3/uL (0.0-0.7) 0.0 x10^3/uL (0.0-0.7) Basophils # (Auto) 0.0 x10^3/uL (0.0-0.2) 0.0 x10^3/uL (0.0-0.2) Sodium Level 143 mmol/L (136-145) Potassium Level 4.2 mmol/L (3.5-5.1) Chloride Level 107 mmol/L (98-107) Carbon Dioxide Level 30 mmol/L (21-32) Anion Gap 6 (6-14) Blood Urea Nitrogen 14 mg/dL (8-26) Creatinine 0.9 mg/dL (0.7-1.3) Estimated GFR (Cockcroft-Gault) 81.4 Glucose Level 115 mg/dL (70-99) Calcium Level 8.5 mg/dL (8.5-10.1) Magnesium Level 1.4 mg/dL (1.8-2.4) Medications Current Medications Sodium Chloride 1,000 ml @ 75 mls/hr [id number] IV ; Start 12/18/16 at 19:45; Stop 12/18/16 at 20:41; Status DC Acetaminophen (Tylenol) 1,000 mg BID PO Last administered on 12/21/16 08:45; Start 12/18/16 at 21:00 Aspirin (Children'S Aspirin) 81 mg DAILY PO Last administered on 12/21/16 08: 45; Start 12/19/16 at 09:00 Bupropion HCl (Wellbutrin Xl) 150 mg DAILY PO Last administered on 12/20/16 08 :19; Start 12/19/16 at 09:00; Stop 12/20/16 at 11:22; Status DC Potassium Citrate (Urocit-K) 10 meq BID PO Last administered on 12/18/16 21:20 ; Start 12/18/16 at 21:00; Stop 12/19/16 at 08:40; Status DC Atorvastatin Calcium (Lipitor) 40 mg QHS PO Last administered on 12/20/16 20: 55; Start 12/18/16 at 21:00 Famotidine (Pepcid) 20 mg BID PO Last administered on 12/21/16 08:46; Start at 21:00 Zolpidem Tartrate (Ambien) 5 mg PRN QHS PRN PO INSOMNIA, MAY REPEAT IN 1HR; Start 12/18/16 at 19:45 Magnesium Chloride (Mag Delay) 64 mg BID PO Last administered on 12/18/16 21: 19; Start 12/18/16 at 21:00; Stop 12/19/16 at 08:40; Status DC Potassium Chloride 30 meq/ Sodium Chloride 1,015 ml @ 75 mls/hr [id number] IV Last administered on 12/20/16 03:30; Start 12/18/16 at 21:30; Stop 12/20/16 at 14:16; Status DC Magnesium Chloride (Mag Delay) 64 mg TID PO Last administered on 12/21/16 08: 46; Start 12/19/16 at 09:00 Potassium Citrate (Urocit-K) 20 meq TID PO Last administered on 12/21/16 08:45 ; Start 12/19/16 at 09:00 Iohexol (Omnipaque 300 Mg/ml) 75 ml 1X ONCE IV Last administered on 12/19/16 09:22; Start 12/19/16 at 08:45; Stop 12/19/16 at 09:03; Status DC Iohexol (Omnipaque 300 Mg/ml) 75 ml 1X ONCE IV ; Start 12/19/16 at 09:15; Stop 12/19/16 at 09:16; Status DC Bupropion HCl (Wellbutrin) 75 mg DAILY PO Last administered on 12/21/16 08:45 ; Start 12/21/16 at 09:00 Ferrous Sulfate (Feosol) 325 mg DAILYWBKFT PO ; Start 12/21/16 at 08:00; Stop at 08:00; Status DC Ferrous Sulfate (Feosol) 325 mg DAILYWBKFT PO Last administered on 12/21/16 08 :45; Start 12/20/16 at 11:30 Lactobacillus Acidophilus (Bacid, Bianka-Bid) 2 tab DAILY PO Last administered on 12/21/16 08:46; Start 12/20/16 at 13:00 Methylprednisolone Sodium Succinate (SOLU-Medrol 40MG VIAL) 40 mg 1X ONCE IV Last administered on 12/20/16 12:38; Start 12/20/16 at 12:30; Stop 12/20/16 at 12:31; Status DC Furosemide (Lasix) 10 mg 1X ONCE IVP Last administered on 12/20/16 17:52; Start 12/20/16 at 18:00; Stop 12/20/16 at 18:01; Status DC Sodium Chloride 250 ml @ As Directed STK-MED ONCE .ROUTE Last administered on 12/20/16 15:28; Start 12/20/16 at 15:28; Stop 12/20/16 at 15:29; Status DC Magnesium Sulfate 50 ml @ 25 mls/hr 1X ONCE IV ; Start 12/21/16 at 10:15; Stop 12/21/16 at 12:14 Active Scripts Active Reported Protonix (Pantoprazole Sodium) 20 Mg Tablet.dr 1 Tab PO DAILY Plavix (Clopidogrel Bisulfate) 75 Mg Tablet 1 Tab PO DAILY Cozaar (Losartan Potassium) 25 Mg Tablet 12.5 Mg PO DAILY Carvedilol 3.125 Mg Tablet 1 Tab PO BID Colace (Docusate Sodium) 50 Mg Capsule 50 Mg PO DAILY Tylenol (Acetaminophen) 325 Mg Tablet 1,000 Mg PO BID Fish Oil 1,000 Mg Capsule ([place]-3 Fatty Acids/Fish Oil) 1 Each Capsule 1 Each PO BID Potassium Citrate 10 Meq Tablet.er 10 Meq PO BID Lipitor (Atorvastatin Calcium) 40 Mg Tablet 40 Mg PO HS Wellbutrin (Bupropion Hcl) 100 Mg Tablet 150 Mg PO DAILY Centrum Complete Multivit Tab (Multivitamin/Iron/Folic Acid) 1 Each Tablet 1 Each PO DAILY Aspirin 81 Mg Tab.chew 81 Mg PO DAILY Vitals/I & O Vital Sign - Last 24 Hours 12/20/16 12/20/16 12/20/16 12/20/16 10:48 11:48 12:32 12:48 Pulse 83 73 73 Resp 16 16 16 B/P (MAP) 90/63 (72) 103/62 (76) 98/60 (73) O2 Delivery Room Air Room Air Room Air Room Air 12/20/16 12/20/16 12/20/16 12/20/16 14:54 15:35 16:03 16:16 Temp 96.9 96.9 98.2 Pulse 84 77 80 Resp 16 21 17 B/P (MAP) 126/79 (95) 93/60 109/71 Pulse Ox 99 O2 Delivery Room Air Room Air 12/20/16 12/20/16 12/20/16 12/20/16 16:16 17:04 17:05 17:57 Temp 98.2 98.4 98.4 Pulse 80 88 85 85 Resp 15 22 19 17 B/P (MAP) 109/71 (84) 114/78 114/78 (90) 129/79 (96) Pulse Ox 99 99 O2 Delivery Room Air Room Air Room Air 12/20/16 12/20/16 12/20/16 12/20/16 18:01 18:04 18:51 20:00 Temp 99.2 99.2 97.8 Pulse 88 87 Resp 24 14 B/P (MAP) 129/79 120/73 (89) O2 Delivery Room Air 12/20/16 12/20/16 12/20/16 12/20/16 20:21 21:12 22:12 23:16 Pulse 92 88 90 89 Resp 15 18 18 12 B/P (MAP) 115/72 (86) 104/74 (84) 119/72 (88) 123/78 (93) O2 Delivery Room Air Room Air 12/21/16 12/21/16 12/21/16 12/21/16 00:00 00:35 01:04 02:09 Pulse 80 76 83 Resp 16 12 13 B/P (MAP) 97/58 (71) 109/68 (82) 95/56 (69) O2 Delivery Room Air 12/21/16 12/21/16 12/21/16 12/21/16 03:05 04:00 04:09 05:30 Temp 98.5 Pulse 84 79 66 Resp 20 13 18 B/P (MAP) 110/66 (81) 111/67 (82) 141/73 (95) Pulse Ox 98 O2 Delivery Room Air Room Air Room Air 12/21/16 12/21/16 12/21/16 12/21/16 06:10 06:57 07:54 07:57 Pulse 76 73 79 Resp 16 14 22 B/P (MAP) 128/76 (93) 115/74 (88) 132/75 (94) O2 Delivery Room Air Room Air Room Air Room Air 12/21/16 08:57 Pulse 80 Resp 22 B/P (MAP) 107/69 (82) Pulse Ox 97 O2 Delivery Room Air Intake and Output 12/21/16 12/21/16 12/22/16 15:00 23:00 07:00 Intake Total 240 ml Balance 240 ml YARA PEREZ Jr, MD 12/22/16 1104: PROGRESS NOTES Assessment The patient was seen by Naldo Rivera APRN and I have reviewed her findings and plan and agree with above. Due to staffing constraints, we did not have an attending available on this day to see the patient. Problems: NALDO RIVERA APRN Dec 21, 2016 10:12 YARA PEREZ Jr, MD Dec 22, 2016 11:04
[2016-12-21] MEDS ORDERED: MAGNESIUM SULFATE 2GM 50 ML IV ONE (10:15)
[2016-12-21] MEDS ORDERED: BUPR75TA6 PO (13:20)
[2016-12-21] MEDS ORDERED: ACID1TAB14 PO (13:20)
[2016-12-21] MEDS ORDERED: POTA10TA17 PO (13:20)
[2016-12-21] MEDS ORDERED: FERR-26 PO (13:20)
[2016-12-21] MEDS ORDERED: Magnesium Chloride Er PO (13:20)
--- NOTE | 2016-12-21 18:27 | PN ---
DATE: 12/19/2016 SUBJECTIVE: A 81-year-old gentleman came in with severe nausea, vomiting, diarrhea. Potassium is low. Also, elevated troponin levels. The patient recently had a STEMI and the patient says he is feeling a little better today as he has been given IV fluids as well as additional potassium and other medications. OBJECTIVE: VITAL SIGNS: Overall, blood pressure is 93/61, respiratory rate 13, pulse 76, afebrile. GENERAL: The patient is alert and oriented. LUNGS: Diminished, but clear. CARDIOVASCULAR: Regular sinus rhythm, S1, S2. ABDOMEN: Soft, nontender, no rebound or guarding, positive bowel sounds, no hepatosplenomegaly noted. EXTREMITIES: No clubbing, cyanosis, or edema. The patient otherwise seems to be resting fairly comfortably. LABORATORY DATA: Showed decreased in his troponin 0.9, down to 0.7. The patient's D-dimer was elevated. CTA was negative. Hemoglobin down to 7.6. White count 2.7, diarrhea is decreased somewhat as he has been rehydrated. Otherwise, the patient seems to be resting fairly comfortably. IMPRESSION: Dehydration, diarrhea, hypokalemia, protein malnutrition, STEMI, elevated troponin levels, coronary artery disease, leukopenia, anemia of chronic disease. PLAN: As above, continue Cardiology consult, get second opinion and make further evaluation on him as Cardiology sees appropriate. ZAIRA WORKMAN MD DR: CECILIO/tara JOB#: [id number] / [id number]
== END 2016-12-21 14:21 | disposition home health service (06) | DRG 391 ==
LOC: 1 SOUTH 18:37 → ICU 12-19 08:01
PROVIDERS: ADMIT Family Medicine; ATTEND Family Medicine
PROC: 30233N1 Transfusion of Nonautologous Red Blood Cells into Peripheral Vein, Percutaneous Approach (ICD-10-PCS; principal; 2016-12-20)
DX: K52.9 Noninfective gastroenteritis and colitis, unspecified (principal); I21.3 ST elevation (STEMI) myocardial infarction of unspecified site; I95.9 Hypotension, unspecified; I42.9 Cardiomyopathy, unspecified; D69.6 Thrombocytopenia, unspecified; E44.1 Mild protein-calorie malnutrition; E86.0 Dehydration; D63.8 Anemia in other chronic diseases classified elsewhere; D50.9 Iron deficiency anemia, unspecified; D72.819 Decreased white blood cell count, unspecified; E78.5 Hyperlipidemia, unspecified; E87.6 Hypokalemia; I25.5 Ischemic cardiomyopathy; I10 Essential (primary) hypertension; I25.10 Atherosclerotic heart disease of native coronary artery without angina pectoris; R70.0 Elevated erythrocyte sedimentation rate; E78.00 Pure hypercholesterolemia, unspecified; I25.2 Old myocardial infarction; Z68.25 Body mass index [BMI] 25.0-25.9, adult; Z87.442 Personal history of urinary calculi; Z95.1 Presence of aortocoronary bypass graft; Z95.5 Presence of coronary angioplasty implant and graft; Z82.49 Family history of ischemic heart disease and other diseases of the circulatory system; Z85.46 Personal history of malignant neoplasm of prostate
CPT/HCPCS: 36415; 71275; 74020; 74150; 80048; 80053; 81001; 82274; 82550; 82607; 82728; 83540; 83550; 83605; 83735; 83880; 84443; 84484; 85007; 85025; 85045; 85379; 85651; 86850; 86900; 86901; 86920; 87045; 87177; 87324; 87641; 93005; J2920; J3475; J7050; P9016; Q9967; 97116; J7030

== ENCOUNTER → 2016-12-25 | Outpatient (CLI) | payer MEDICARE, OTHER ==
[2016-12-21 08:57] VITALS: BP 107/69
[~2016-12-25] MED LIST changes: +ACID1TAB14 PO; +BUPR75TA6 PO; +CARV3.122 PO; +CLOP75TA57 PO; +FERR-26 PO; +LOSA25TA PO; +Magnesium Chloride Er PO; +PANT20TA58 PO
[2016-12-25 10:04] LABS: BASO % 0 % (0-3); EOS # 0.1 x10^3/uL (0.0-0.7); EOS % 3 % (0-3); HEMATOCRIT 30.6 % (39.0-53.0); HEMOGLOBIN 10.8 g/dL (13.0-17.5); LYMPH % 29 % (24-48); MEAN CORPUSCULAR HEMOGLOBIN 36 pg (25-35); MEAN CORPUSCULAR HGB CONC 35 g/dL (31-37); MEAN CORPUSCULAR VOLUME 102 fL (79-100); MONO # 0.3 x10^3/uL (0.0-1.1); MONO % 10 % (0-9); NEUT % 58 % (31-73); PLATELET COUNT 127 x10^3/uL (140-400); RED BLOOD COUNT 3.01 x10^6/uL (4.30-5.70); RED CELL DISTRIBUTION WIDTH 16.3 % (11.5-14.5); WHITE BLOOD COUNT 3.5 x10^3/uL (4.0-11.0)
[2016-12-25 10:12] LABS: CALCIUM 8.7 mg/dL (8.5-10.1); POTASSIUM 3.4 mmol/L (3.5-5.1)
[2016-12-25 10:15] LABS: GFR 72.1
== END | disposition home or self-care (01) ==
LOC: LAB 09:00
PROVIDERS: ATTEND Family Medicine
DX: D64.9 Anemia, unspecified (principal)
CPT/HCPCS: 36415; 80048; 85025

== ENCOUNTER → 2018-02-27 | Outpatient (CLI) | payer MEDICARE, OTHER ==
[2016-12-21 08:57] VITALS: BP 107/69
[~2018-02-27] MED LIST changes: -CARV3.122 PO; +CARV3.1230 PO; -FERR-26 PO; +FERR325T14 PO; +IOHEXOL 240 MG/ML 50ML VIAL. ONE; +IOHEXOL 300 MG/ML 75 ML VIAL. IV ONE
[2018-02-27 10:51] LABS: CREATININE 1.1 mg/dL (0.7-1.3); GFR 64.4
--- NOTE | 2018-02-27 14:55 | RAD ---
CT abdomen pelvis with contrast 02/27/2018 Clinical indications: Enterocolitis with C. difficile, abdominal pain. COMPARISON: CT abdomen pelvis 12/20/2017, 03/07/2016, 07/31/2014 TECHNIQUE: Multiple CT images of the abdomen and pelvis were obtained following the intravenous and ministration of 75 mL Omnipaque 300. *One or more of the following individualized dose reduction techniques were utilized for this examination: 1. Automated exposure control. 2. Adjustment of the mA and/or kV according to patient size. 3. Use of iterative reconstruction technique. FINDINGS: Heart size is normal. Coronary artery calcifications are noted. Liver is normal in size and morphology. There are 2 stable hepatic segment 2 cysts. Cholecystectomy. No biliary ductal dilatation. Mild splenomegaly measuring 13.7 cm oblique CC. Adrenal glands unremarkable. Mild fatty atrophy of the pancreas. Mild bilateral renal atrophy. There are multiple bilateral renal simple cysts with slight enlargement of the largest inferior pole left renal cyst measuring 3.5 cm. There is a posterior interpolar left renal hypodensity which does not meet strict criteria for cysts, though stable since at least 2015 measuring 1.4 cm series 2/image 40. Nonobstructive inferior pole left renal calculi, the largest measuring 0.6 cm. Tortuous abdominal aorta with moderate aortoiliac calcified plaque. Major portal veins are patent. No retroperitoneal or mesenteric lymphadenopathy. Evaluation of the pelvis is limited due to artifact from left hip arthroplasty. There is moderate to severe distal colonic diverticulosis. Trace dependent peritoneal fluid. No bowel obstruction. Appendix is normal in appearance. No pneumoperitoneum. There is a tiny hiatal hernia. Urinary bladder not well-visualized. No inguinal lymphadenopathy. Iliac lymphadenopathy is limited in evaluation. Levoconvex lumbar scoliosis. Multilevel lumbar spondylosis. There is a tiny fat-containing left inguinal hernia. IMPRESSION: 1. Significant limited evaluation of the pelvis due to artifact from left hip arthroplasty. There is trace pelvic free fluid of unclear etiology and may be due to inflammation/infection in the pelvis which is not well visualized. 2. Moderate to severe distal colonic diverticulosis, with suboptimal evaluation for diverticulitis due to the artifact. 3. Mild splenomegaly. 4. Mild bilateral renal atrophy with obstructive left nephrolithiasis and bilateral renal cysts and stable hypodensities. Electronically signed by: Baudilio Hammer MD (02/27/2018 2:52 PM) [id number]
== END | disposition home or self-care (01) ==
LOC: CT 09:52
PROVIDERS: ATTEND Family Medicine
DX: A04.71 Enterocolitis due to Clostridium difficile, recurrent (principal); I12.9 Hypertensive chronic kidney disease with stage 1 through stage 4 chronic kidney disease, or unspecified chronic kidney disease; N18.2 Chronic kidney disease, stage 2 (mild); K91.89 Other postprocedural complications and disorders of digestive system; N20.0 Calculus of kidney; N28.1 Cyst of kidney, acquired; K57.30 Diverticulosis of large intestine without perforation or abscess without bleeding; M41.86 Other forms of scoliosis, lumbar region; K86.89 Other specified diseases of pancreas; I25.10 Atherosclerotic heart disease of native coronary artery without angina pectoris; I70.0 Atherosclerosis of aorta; M47.896 Other spondylosis, lumbar region; R16.1 Splenomegaly, not elsewhere classified
CPT/HCPCS: 36415; 74177; 82565; 84520; Q9966; Q9967